=== PATIENT | female | born 1955 | race Caucasian/White ===

== ENCOUNTER → 2025-10-29 13:46 | Outpatient (BNVA) | payer MEDICARE, SELFPAY | PROVIDERS: Visit Provider Podiatrist Foot & Ankle Surgery | DX: I73.9 Peripheral vascular disease, unspecified (principal); L60.3 Nail dystrophy; L84 Corns and callosities; L85.3 Xerosis cutis | CPT/HCPCS: 11055; 11721; 99203 ==